=== PATIENT | male | born 1990 | race Two or more races ===

== ENCOUNTER → 2018-01-04 | Day surgery (SDC) | payer OTHER ==
[~2018-01-04] VITALS: Ht 167.6 cm; Wt 65.8 kg
[~2018-01-04] MED LIST: KETOROLAC TROMETH 30 MG/ML 1ML VIAL IV SCH; KETOROLAC TROMETH 60MG/2ML VIAL IM ONE; LIDOCAINE W/ EPINEPHRINE 2% INJ 20ML VIAL ONE; MEPERIDINE HCL (25 MG/ML) 1ML VIAL IV ONE; METHYLENE BLUE 0.5% 5MG/ML 10ml AMP IV ONE; METOCLOPRAMIDE HCL 5MG/ml INJ 2ml VIAL IV SCH; MIDAZOLAM HCL 1MG/1ML-2 ML VIAL ONE; ONDANSETRON HCL 4 MG/2 ML VIAL ONE; PROPOFOL 10 MG/ML 20 ML IV ONE; SODIUM CHLORIDE LOCK 10 ML ONE; SUCCINYLCHOLINE CHLORIDE 20 MG/ML 10ML VIAL IV ONE; ceFAZolin 1GM/50ML 50 ML IV ONE; diphenhdrAMINE HCL 50 MG/1 ML VL ONE; fentaNYL CITRATE 100 MCG/2 ML VL IV SCH; fentaNYL CITRATE 100 MCG/2 ML VL ONE
[2018-01-04 11:27] VITALS: BP 106/66
== END | disposition home or self-care (01) ==
LOC: SUR 06:25 → EEVIPCON 07:45
PROVIDERS: ATTEND Urology
DX: N21.0 Calculus in bladder (principal); N35.9 Urethral stricture, unspecified; N32.0 Bladder-neck obstruction; N39.0 Urinary tract infection, site not specified
CPT/HCPCS: J0330; J0690; J1885; J2250; J2405; J2704